=== PATIENT | female | born 1945 | race Caucasian/White ===

== ENCOUNTER 2020-06-22 08:18 | Day surgery (SDC) | payer MEDICARE, MEDICAID ==
[2020-06-18 10:05] LABS: HEMATOCRIT 34.4 % (36.0-47.0); HEMOGLOBIN 11.5 g/dL (12.0-15.5); MEAN CORPUSCULAR HEMOGLOBIN 27.9 pg (27.0-33.4); MEAN CORPUSCULAR HGB CONC 33.5 g/dL (32.0-36.0); MEAN CORPUSCULAR VOLUME 83 fl (80-97); PLATELET COUNT 117 10^3/uL (150-450); RED BLOOD COUNT 4.14 10^6/uL (3.72-5.28); RED CELL DISTRIBUTION WIDTH 16.3 % (11.5-14.0); WHITE BLOOD COUNT 4.8 10^3/uL (4.0-10.5)
[2020-06-18 10:15] LABS: APPEARANCE,URINE SLIGHTLY-CLOUDY; BILIRUBIN,URINE NEGATIVE (NEGATIVE); COLOR,URINE YELLOW; GLUCOSE, URINE NEGATIVE (NEGATIVE); KETONES,URINE NEGATIVE (NEGATIVE); LEUKOCYTE ESTERASE,URINE NEGATIVE (NEGATIVE); NITRITE,URINE NEGATIVE (NEGATIVE); PROTEIN,URINE NEGATIVE (NEGATIVE); URINE SPECIFIC GRAVITY 1.028
[2020-06-18 10:22] LABS: INTERNATIONAL RATION (INR) 0.91; PROTHROMBIN TIME 12.4 SEC (11.4-15.4)
[2020-06-18 10:23] LABS: PARTIAL THROMBOPLASTIN TIME 32.6 SEC (23.5-35.8)
--- NOTE | 2020-06-18 13:39 | RADIOLOGY REPORT (SQ) ---
EXAM DESCRIPTION: CHEST PA/LATERAL IMAGES COMPLETED DATE/TIME: 06/18/2020 9:41 am REASON FOR STUDY: PRE-OP COMPARISON: None. EXAM PARAMETERS: NUMBER OF VIEWS: two views TECHNIQUE: Digital Frontal and Lateral radiographic views of the chest acquired. RADIATION DOSE: NA LIMITATIONS: none FINDINGS: LUNGS AND PLEURA: No opacities, masses or pneumothorax. No pleural effusion. MEDIASTINUM AND HILAR STRUCTURES: No masses or contour abnormalities. HEART AND VASCULAR STRUCTURES: Heart normal size. No evidence for failure. BONES: No acute findings. HARDWARE: Neurostimulator electrode in the thoracic spine. OTHER: No other significant finding. IMPRESSION: NO SIGNIFICANT RADIOGRAPHIC FINDING IN THE CHEST. TECHNICAL DOCUMENTATION: JOB ID: [id number] 2010 [employer]- All Rights Reserved Reading location - IP/workstation name: [email or web address]
--- NOTE | 2020-06-18 16:54 | EKG REPORT ---
SEVERITY:- NORMAL ECG - SINUS RHYTHM : Confirmed by: Yair Larson MD 18-Jun-2020 16:53:34
[~2020-06-22 08:18] MED LIST: CEFAZOLIN 1 GM/D5W RTU 1 GM/50 ML RTUPB IV PRN; CLINDAMYCIN 600 MG/D5W RTU 600 MG/50 ML RTUPB IV ONE; CLINDAMYCIN 600 MG/D5W RTU 600 MG/50 ML RTUPB IV PRN; LACTATED RINGERS 1000 ML IV PRN; LIDOCAINE 0.5% INJ-PF (5 MG/ML) 50 ML SDV SUBCUT PRN
[2020-06-22 08:56] LABS: INTERNATIONAL RATION (INR) 0.92; PROTHROMBIN TIME 12.6 SEC (11.4-15.4)
[2020-06-22 08:57] LABS: PARTIAL THROMBOPLASTIN TIME 35.1 SEC (23.5-35.8); POTASSIUM 4.5 mmol/L (3.6-5.0)
[2020-06-22] MEDS ORDERED: LIDOCAINE 1% INJ-PF (10 MG/ML) 30 ML SDV ONE (09:03)
[2020-06-22] MEDS ORDERED: SODIUM BICARBONATE 4.2% INJ (2.5 MEQ/5 ML) VIAL ONE (09:04)
[2020-06-22] MEDS ORDERED: TRIAMCINOLONE ACETONIDE INJ 40 MG/1 ML VIAL ONE (09:04)
[2020-06-22] MEDS ORDERED: BUPIVACAINE HCL 0.25% /EPINEPHRINE INJ/PF 30 ML SDV ONE (09:04)
[2020-06-22] MEDS ORDERED: MIDAZOLAM 2 MG/2 ML INJ ONE (09:16)
[2020-06-22] MEDS ORDERED: HYDROMORPHONE HCL INJ/PF 2 MG/ML AMPULE ONE (09:16)
[2020-06-22] MEDS ORDERED: KETAMINE HCL INJ 500 MG/10 ML VIAL ONE (09:16)
[2020-06-22] MEDS ORDERED: PROPOFOL INJ 200 MG/20 ML VIAL IV ONE (09:17)
[2020-06-22] MEDS ORDERED: FENTANYL CITRATE INJ/PF 100 MCG/2 ML AMPUL IV PRN ×6 (10:13→12:21)
[2020-06-22] MEDS ORDERED: MEPERIDINE HCL/PF INJ 25 MG/1 ML DISP.SYRIN IV PRN ×2 (10:13→12:21)
[2020-06-22] MEDS ORDERED: DIPHENHYDRAMINE HCL 50 MG/ML VIAL IV PRN ×2 (10:13→12:21)
[2020-06-22] MEDS ORDERED: PROMETHAZINE HCL INJ 25 MG/1 ML VIAL IV PRN ×4 (10:13→12:21)
[2020-06-22] MEDS ORDERED: CLINDAMYCIN PHOSPHATE INJ 300 MG/2 ML SDV ONE (10:54)
--- NOTE | 2020-06-22 10:59 | Operative Report ---
Operative Report DATE OF SURGERY: 06/22/20 PREOPERATIVE DIAGNOSIS: Nonfunctioning spinal cord stimulator pulse generator POSTOPERATIVE DIAGNOSIS: Same OPERATION: Removal and replacement of spinal cord stimulator pulse generator complex programming and analysis could be for evaluation of battery and lead placement SURGEON: CLARISA SON ANESTHESIA: LMAC TISSUE REMOVED OR ALTERED: Nonfunctioning pulse generator COMPLICATIONS: None ESTIMATED BLOOD LOSS: Minimal
[2020-06-22] MEDS ORDERED: OXYCODONE-ACETAMINOPHEN 5-325 MG TABLET PO PRN (11:18)
[2020-06-22 13:00] VITALS: BP 136/58
--- NOTE | 2020-06-22 14:15 | RADIOLOGY REPORT (SQ) ---
EXAM DESCRIPTION: NO CHG FLUORO; SPINE SINGLE VIEW IMAGES COMPLETED DATE/TIME: 06/22/2020 1:45 pm REASON FOR STUDY: SPINAL STIMULATOR REVISION ASSISTED WITH FLUORO IN OR; SPINAL STIMULATOR REVISION/ BATTERY ASSISTED WITH FLUORO IN OR G89.4 CHRONIC PAIN SYNDROME M96.1 POSTLAMINECTOMY SYNDROME, NOT ELSEWHERE CLASSIFIED Z79.01 ALF (CURRENT) USE OF ANTICOAGULANTS COMPARISON: None. FLUOROSCOPY TIME: 0.3 minutes 5 images saved to PACS. TECHNIQUE: Intra-operative images acquired during surgical procedure to evaluate progress. NUMBER OF IMAGES: 5 LIMITATIONS: None. FINDINGS: Thoracic spinal stimulator. IMPRESSION: IMAGE(S) OBTAINED DURING PROCEDURE. COMMENT: Quality ID 145: Final reports for procedures using fluoroscopy that document radiation exp osure indices, or exposure time and number of fluorographic images (if radiation exposure indices are not available) Please consult full operative report of the attending physician for description of the procedure. TECHNICAL DOCUMENTATION: JOB ID: [id number] 2010 [employer]- All Rights Reserved Reading location - IP/workstation name: [email or web address]
--- NOTE | 2020-06-22 14:15 | RADIOLOGY REPORT (SQ) ---
EXAM DESCRIPTION: NO CHG FLUORO; SPINE SINGLE VIEW IMAGES COMPLETED DATE/TIME: 06/22/2020 1:45 pm REASON FOR STUDY: SPINAL STIMULATOR REVISION ASSISTED WITH FLUORO IN OR; SPINAL STIMULATOR REVISION/ BATTERY ASSISTED WITH FLUORO IN OR G89.4 CHRONIC PAIN SYNDROME M96.1 POSTLAMINECTOMY SYNDROME, NOT ELSEWHERE CLASSIFIED Z79.01 HALFWAY (CURRENT) USE OF ANTICOAGULANTS COMPARISON: None. FLUOROSCOPY TIME: 0.3 minutes 5 images saved to PACS. TECHNIQUE: Intra-operative images acquired during surgical procedure to evaluate progress. NUMBER OF IMAGES: 5 LIMITATIONS: None. FINDINGS: Thoracic spinal stimulator. IMPRESSION: IMAGE(S) OBTAINED DURING PROCEDURE. COMMENT: Quality ID 145: Final reports for procedures using fluoroscopy that document radiation exp osure indices, or exposure time and number of fluorographic images (if radiation exposure indices are not available) Please consult full operative report of the attending physician for description of the procedure. TECHNICAL DOCUMENTATION: JOB ID: [id number] 2010 [employer]- All Rights Reserved Reading location - IP/workstation name: [email or web address]
== END 2020-06-22 12:45 | disposition home or self-care (01) ==
LOC: OROUT 08:18
PROVIDERS: ATTEND Pain Medicine Interventional Pain Medicine
DX: G89.4 Chronic pain syndrome (principal); M96.1 Postlaminectomy syndrome, not elsewhere classified; Z03.818 Encounter for observation for suspected exposure to other biological agents ruled out; E78.00 Pure hypercholesterolemia, unspecified; I10 Essential (primary) hypertension; I25.2 Old myocardial infarction; E11.9 Type 2 diabetes mellitus without complications; M06.9 Rheumatoid arthritis, unspecified; Z88.0 Allergy status to penicillin; Z79.01 Long term (current) use of anticoagulants; Z79.899 Other long term (current) drug therapy; Z79.84 Long term (current) use of oral hypoglycemic drugs; Z79.82 Long term (current) use of aspirin
CPT/HCPCS: 63685; 93005; 36415 ×2; 82947; 84132; 85027; 85610 ×2; 85730 ×2; 81001; 71046; 72020; 93010; 01936; U0003; J2250; J3490 ×5; J1170; J3301; J2704; C9803; 1936; 87635